=== PATIENT | male | born 1950 | race Two or more races ===

== ENCOUNTER 2024-10-04 11:01 | Emergency (ER) | payer MEDICAID, SELFPAY ==
[2024-10-04 11:25] VITALS: BP 151/66; PULSE 62; RESP 16; TEMP 36.9; O2SAT 96; BMI 26.7
--- NOTE | 2024-10-04 11:30 | EDRME_ITS ---
<Statement entered by Marilia Leung MD - 10/04/24 11:53> As co-signing physician, I was present and available for consult prn. I concur with the plan and care as documented by the midlevel provider. Rapid Medical Screening Exam RME Arrival date/time: 10/04/24 11:01 74-year-old male with no known medical history presents to the emergency room with a chief complaint of 7 out of 10 suprapubic abdominal tenderness, dysuria, and lower groin pain x 2 days. I have greeted and performed a focused initial assessment of this patient. A comprehensive ED assessment and evaluation of the patient, analysis of all test results, and completion of the medical decision making process will be conducted by additional ED providers. Chief Complaint: Urogenital-Male Time Seen by Provider: 10/04/24 11:25 Vital signs: Vital Signs Temperature 98.4 F 10/04/24 11:25 Pulse Rate 62 10/04/24 11:25 Respiratory Rate 16 10/04/24 11:25 Blood Pressure 151/66 H 10/04/24 11:25 Pulse Oximetry (%) 96 10/04/24 11:25 Oxygen Delivery Method Room Air 10/04/24 11:25 Vital signs reviewed by provider: Yes
--- NOTE | 2024-10-04 11:30 | XR_ITS ---
Examination: CT abdomen and pelvis without contrast. Coronal 3-D reconstructions. Sagittal 2-D reconstructions. Date and time of exam:October 04, 2024 1241 hours INDICATIONS: Lower abdominal pain radiating to the rectal region with difficulty urinating today CTDI: vol (mGy): 6.57 DLP: (mGycm): 405 Technique: Axial images of the abdomen have been obtained, 3 mm slice thickness Intravenous contrast material has not been administered. Low dose protocols were performed. One or more of the following dose reduction techniques were used; automated exposure control, adjustment of the mA and/or KV according to patient size, use of iterative reconstruction technique. Findings: No focal liver or splenic lesions No gallstones No pancreatic or adrenal mass 1 mm upper pole left renal calculus, no hydronephrosis or ureteral calculi Aorta normal size Normal appendix No bowel obstruction Transverse prostate dimension 4.5 cm Mild thickening urinary bladder wall Mild osteopenia No proctitis pattern IMPRESSION: 1 mm nonobstructing upper pole left renal calculus Normal appendix No bowel obstruction or diverticulitis Rectal wall does not exhibit definite thickening
[2024-10-04 11:59] LABS: Basophils # (Auto) 0.1 Thou/mm3 (0.0-0.2); Basophils % (Auto) 1 % (0-2.5); Eosinophils # (Auto) 0.3 Thou/mm3 (0.0-0.5); Eosinophils % (Auto) 5 % (0-10); Hematocrit 34.9 % (41.0-53.0); Hemoglobin 12.2 g/dL (13.5-16.0); Immature Granulocytes % (Auto) 0 % (0-0); Immature Granulocytes Auto 0.01 Thou/mm3 (0.00-0.00); Lymphocytes # (Auto) 2.2 Thou/mm3 (1.0-4.8); Lymphocytes % (Auto) 33 % (10-50); Mean Corpuscular Hemoglobin 31.7 pg (25.0-35.0); Mean Corpuscular Volume 91 fL (80-100); Monocytes # (Auto) 0.4 Thou/mm3 (0.0-0.8); Monocytes % (Auto) 6 % (0-12); Neutrophils # (Auto) 3.7 Thou/mm3 (1.8-7.7); Neutrophils % (Auto) 56 % (37-80); Nucleated Red Blood Cell % 0 /100 WBC (0); Platelet Count 306 Thou/mm3 (140-440); RDW Standard Deviation 42.1 fL (35.1-43.9); Red Blood Count 3.85 Miln/mm3 (4.50-5.90); White Blood Count 6.6 Thou/mm3 (3.8-10.6)
[2024-10-04] MEDS: KETOROLAC INJ 60 MG/2 ML VIAL 30 MG IM (12:20)
[2024-10-04] MEDS: TAMSULOSIN HCL 0.4 MG CAPSULE PO (12:20)
[2024-10-04 12:24] LABS: Prostate Specific Antigen 0.59 ng/mL (0-4.00)
[2024-10-04 12:32] LABS: Alanine Aminotransferase 8 U/L (10-49); Albumin, Serum 4.2 gm/dL (3.4-4.8); Albumin/Globulin Ratio 1.6 (1.2-2.2); Alkaline Phosphatase 97 U/L (46-116); Anion Gap 5 (7-16); Aspartate Amino Transferase 15 U/L (0-34); BUN/Creatinine Ratio 17 Ratio (12-20); Bilirubin,Total 0.4 mg/dL (0.3-1.2); Blood Urea Nitrogen 17 mg/dL (9-23); Calcium 8.9 mg/dL (8.3-10.6); Calcium (Corrected) 8.9 mg/dL (8.5-10.1); Carbon Dioxide 26.1 mMol/L (20.0-31.0); Chloride 110 mMol/L (98-107); Estimated Creatinine Clearance 59.7 mL/min (>60); Globulin 2.7 gm/dL (2.3-3.5); Glucose 132 mg/dL (74-106); Lipase 40 U/L (12-53); Osmolality,Calculated 284 (275-295); Sodium 141 mMol/L (136-145); Total Protein 6.9 gm/dL (5.7-8.2); eGFR > 60 See Note
[2024-10-04 12:43] LABS: Collection Type, Urine Clean Catch; Squamous Epithelial Cell,Urine 0 /hpf (0-5)
[2024-10-04 12:51] LABS: Bilirubin,Urine Negative (Negative); Blood,Urine Negative (Negative); Clarity,Urine Clear (Clear/Hazy); Color,Urine Yellow (Lt Yel-Yel); Glucose, Urine Negative (Negative); Ketones,Urine Negative (Negative); Leukocyte Esterase,Urine Negative (Negative); Nitrite,Urine Negative (Negative); PH,Urine 5.5 (5.0-7.0); Protein,Urine Trace (Neg - Trace); RBC,Urine 5 /hpf (0-3); Specific Gravity,Urine 1.029 (1.001-1.035); Urobilinogen,Urine Negative mg/dL (0.0-1.0); WBC,Urine 1 /hpf (0-5)
[2024-10-04 17:39] VITALS: BP 147/72; PULSE 60; RESP 18; TEMP 36.6; O2SAT 98
--- NOTE | 2024-10-04 17:46 | EDNOTE_ITS ---
<Statement entered by Marilia Leung MD - 10/05/24 07:27> As co-signing physician, I was present and available for consult prn. I concur with the plan and care as documented by the midlevel provider. ED Male Genitalurinary RME/[facility] General Chief complaint: Urogenital-Male Stated complaint: LOWER ABD PAIN RAD TO RECTUM, URINARY RETENTION Time Seen by Provider: 10/04/24 11:25 Arrival date/time: 10/04/24 11:01 RME / HPI RME / HPI Narrative: 74-year-old male with no known medical history presents to the emergency room with a chief complaint of 7 out of 10 suprapubic abdominal tenderness, dysuria, and lower groin pain x 2 days. Patient denies any hematuria. Denies any fever denies any vomiting denies any other complaints no medications taken prior to arrival. Related Data Previous Rx's ?Medication ?Instructions ?Recorded ibuprofen 600 mg tablet 600 mg PO TID PRN pain #30 t abs 10/04/24 tamsulosin 0.4 mg capsule (Flomax) 0.4 mg PO QDAY #20 caps 10/04/24 Allergies Allergy/AdvReac Type Severity Reaction Status Date / Time No Known Allergies Allergy Verified 10/04/24 11:06 Review of Systems Review of Systems Narrative Review of Systems: Review of system reviewed and within normal limits except mentioned in HPI ED Exam Narrative Physical exam: VITAL SIGNS: Reviewed. GENERAL APPEARANCE: Alert and interactive, follows commands, no acute distress, HEAD AND FACE: Non-traumatic. ENT: PERRL, pink conjunctivitis, eyelid no trauma, Mucous membrane moist. NECK: Supple, nontender, no nuchal rigidity. CHEST: No tenderness, no crepitus, no paradoxical movement, no retractions. LUNGS: Clear, well ventilated, symmetric, no rales, no wheezing, no ronchi, no stridor, good breath sounds bilaterally. HEART: Regular rate, regular rhythm, no murmur, no gallops. ABDOMEN: Soft, positive bowel sounds, nondistended, no guarding, nontender, no rebound, no masses, RECTAL: Deferred. GENITAL: Deferred. NEUROLOGICAL: Gross motor function intact sensory function intact, Appropriate for age. MUSCULOSKELETAL: low back nontender, full range of motion. EXTREMITIES: Nontender, full range of motion. SKIN: Color pink, dry, no rash, no lacerations, no abrasions, no contusions. LYMPHATICS: Deferred. Course Quality Measures none Orders Category Date Time Status CT abdomen pelvis wo con Stat Exams 10/04/24 11:30 Completed CBC Stat Lab 10/04/24 11:41 Completed CMP [Comprehensive Metabolic Panel] Stat Lab 10/04/24 11:41 Completed Lipase Stat Lab 10/04/24 11:41 Completed PSA [Prostate Specific Antigen] Stat Lab 10/04/24 11:41 Completed UA [Urinalysis] Stat Lab 10/04/24 12:25 Completed Urine Culture Stat Lab 10/04/24 12:25 Received Ketorolac Inj [Toradol Inj] Med 10/04/24 11:30 Discontinued 30 mg IM X1 ONE Tamsulosin HCl [Flomax] Med 10/04/24 11:30 Discontinued 0.4 mg PO X1 ONE Vital Signs Vital signs: Vital Signs Temperature 98.4 F 10/04/24 11:25 Pulse Rate 62 10/04/24 11:25 Respiratory Rate 16 10/04/24 11:25 Blood Pressure 151/66 H 10/04/24 11:25 Pulse Oximetry (%) 96 10/04/24 11:25 Oxygen Delivery Method Room Air 10/04/24 11:25 Urogenital - Male MDM Narrative MDM Narrative:: 74-year-old male with no known medical history presents to the emergency room with a chief complaint of 7 out of 10 suprapubic abdominal tenderness, dysuria, and lower groin pain x 2 days. Patient denies any hematuria. Denies any fever denies any vomiting denies any other complaints no medications taken prior to arrival. Laboratory workup all came back normal. No leukocytosis urinalysis no UTI. CT scan of the abdomen and pelvis showed 1 mm nonobstructing upper pole left renal calculus Normal appendix No bowel obstruction or diverticulitis Rectal wall does not exhibit definite thickening Results discussed with the patient. Currently patient is not having any pain. Patient appears nontoxic and hemodynamically stable. Patient discharged home and instructed to follow-up with primary care provider in 24 to 48 hours. Instructed to return to the emergency department immediately if worsening of symptoms Patient data External records reviewed:: None Clinical information provided by:: patient and family Social determinants that could affect healthcare access:: none Patient has the following chronic illnesses:: None How is presenting disease/condition affected by chronic disease/condition?: exacerbated by Evaluation data The following diagnostics were reviewed and interpreted by me:: lab results and radiology exam(s) Lab and/or radiology exams considered but not ordered:: None Interpretation Summary: See results in [facility] Medications / Prescriptions Medications or Prescriptions considered but not ordered:: None Medication administrations:: Medication Administration History Discontinued Medications Ketorolac Tromethamine (Ketorolac Inj 60 Mg/2 Ml Vial) 30 mg IM X1 ONE Stop: 10/04/24 11:31 Last Admin: 10/04/24 12:20 Dose: 30 mg Documented By: HEIDE Tamsulosin HCl (Tamsulosin Hcl 0.4 Mg Capsule) 0.4 mg PO X1 ONE Stop: 10/04/24 11:31 Last Admin: 10/04/24 12:20 Dose: 0.4 mg Documented By: HEIDE Flomax and Toradol Consultations Consultation(s) initiated? (list below): No Diagnosis Urogenital Male Differential Diagnosis: urinary tract infection, urethritis and other (Renal colic, kidney stone) Most likely diagnosis given after review of the tests above:: Renal colic, kidney stone Admission Indicated Admission indicated?: not indicated Admission Request Was there a request for admission?: No Disposition Plan Disposition Plan: Discharge Discharge Attestation Discharge Attestation: The patient and all family members were given an opportunity to ask questions and understood the discharge instructions. Discharge instructions specifically effects, indications for sooner follow up or return to the emergency department, and the expected course of current diagnosis. Patient condition: Stable Discharge Plan Plan Patient Disposition: HOME (Self Care) Disposition Comment: stable Prescriptions/Referrals Prescriptions/Med Rec: New ibuprofen 600 mg tablet 600 mg PO TID PRN (Reason: pain) Qty: 30 0RF tamsulosin [Flomax] 0.4 mg capsule 0.4 mg PO QDAY Qty: 20 0RF Referrals: No Primary/Family,Physician [Primary Care Provider] - In 1 week Problem List Clinical Impression: Renal colic, Calculus, renal Patient/Caregiver Discharge Instructions Discharge Activity: activity as tolerated Education Materials: ED Kidney Stone w/ Colic Additional Instructions: Thank you for the opportunity for serving you today. You are stable for discharged . You are advised to: Follow-up with your PCP in 1 to 2 days Return to ED for worsening of symptoms Increase oral fluids Take medication as prescribed Print Language: Argentine Stand Alone Forms: [employer] Info., Patient Portal Info Letter PA/HEALTH PROGRAM SPECIALIST Supervising Physician PA/HEALTH PROGRAM SPECIALIST Supervising Physician: MD Oswaldo
== END 2024-10-04 17:51 | disposition home or self-care (01) ==
PROVIDERS: Nurse Practitioner Family; Emergency Provider Emergency Medicine
DX: N20.0 Calculus of kidney (principal)
CPT/HCPCS: 36415; 74176; 80053; 81001; 83690; 84153; 85025; 87086; 96372; 99284; J1885; A9270

== ENCOUNTER 2024-11-16 15:57 | Emergency (ER) | payer MEDICAID, SELFPAY ==
--- NOTE | 2024-11-16 16:24 | PD.EDMALE ---
ED Male Genitalurinary RME/HPI General Chief complaint: Abdominal Pain Stated complaint: RASH PENIS Time Seen by Provider: 11/16/24 16:23 Arrival date/time: 11/16/24 15:57 74-year-old male presents to the emergency department today for complaints of recurrent rash to the penis. Patient was no fever nausea vomiting no chance of STD Limitations: no limitations Related Data Previous Rx's ?Medication ?Instructions ?Recorded ibuprofen 600 mg tablet 600 mg PO TID PRN pain #30 tabs 10/04/24 tamsulosin 0.4 mg capsule (Flomax) 0.4 mg PO QDAY #20 caps 10/04/24 clotrimazole 1 % topical cream 1 applic topical BID 2 weeks #30 11/16/24 grams fluconazole 150 mg tablet 150 mg PO Q3D 2 doses #2 tabs 11/16/24 Allergies Allergy/AdvReac Type Severity Reaction Status Date / Time No Known Allergies Allergy Verified 11/16/24 16:03 Review of Systems Review of Systems Systems Reviewed: All systems reviewed, normal except as documented Constitutional Constitutional: Reports system reviewed and no additional complaints, except as documented, Denies fever(s) and Denies headache(s) Eyes Eyes: Reports system reviewed and no additional complaints, except as documented and Denies blurry vision ENT Ears, Nose, Mouth, and Throat: Reports system reviewed and no additional complaints, except as documented, Denies headache(s), Denies nasal congestion and Denies nasal discharge Cardiovascular Cardiovascular: Reports system reviewed and no additional complaints, except as documented, Denies chest pain and Denies dyspnea Respiratory Respiratory: Reports system reviewed and no additional complaints, except as documented, Denies chest congestion, Denies cough and Denies dyspnea Gastrointestinal Gastrointestinal: Reports system reviewed and no additional complaints, except as documented and Denies abdominal pain Genitourinary Genitourinary: Reports system reviewed and no additional complaints, except as documented and Reports other (Skin irritation penis) Integumentary/Breasts Skin/Breast: Reports system reviewed and no additional complaints, except as documented and Denies rash Neurologic Neurologic: Reports system reviewed and no additional complaints, except as documented, Reports as per HPI and Denies headache(s) Past Medical History Social History SMOKING STATUS: Never smoker ED Exam General Limitations: Present no limitations General appearance: Present alert and in no apparent distress Head Head exam: Present atraumatic, normocephalic and normal inspection Eye Eye exam: Present normal appearance, PERRL and EOMI ENT ENT exam: Present normal exam, normal oropharynx and mucous membranes moist Neck Neck exam: Present normal inspection, full ROM and trachea midline Chest Chest inspection: Present normal inspection and symmetric chest wall rise Respiratory Respiratory exam: Present normal lung sounds bilaterally Cardiovascular Cardiovascular exam: Present regular rate, normal rhythm and normal heart sounds Abdominal Exam Abdominal exam: Present soft and normal bowel sounds; Absent distention, tenderness, guarding, rebound or rigidity exam: Present normal testicular lie and other (Penile rash no chancre); Absent testicular tenderness, urethral discharge, scrotal swelling or circumcised Extremities Exam Extremities exam: Present normal inspection and full ROM Back Exam Back exam: Present normal inspection and full ROM Neurological Exam Neurological exam: Present alert, oriented X3 and CN II-XII intact Psychiatric Psychiatric exam: Present normal affect and normal mood Skin Skin exam: Present warm, dry, intact and normal color Course Quality Measures none Vital Signs Vital signs: O2 saturation 98% room air within the limits Urogenital - Male MDM Narrative MDM Narrative:: 74-year-old male presents to the emergency department today for complaints of recurrent rash to the penis. Patient was no fever nausea vomiting no chance of STD On exam symptoms appear to be candidal rash patient be treated accordingly Patient reports no dysuria no fever no abdominal pain no vomiting Patient discharged home in no distress to follow-up with primary care doctor in the next 24 to 48 hours and for any worsening symptoms to return to the ER immediately Patient data External records reviewed:: [facility] previous records Clinical information provided by:: patient Social determinants that could affect healthcare access:: none Patient has the following chronic illnesses:: See history How is presenting disease/condition affected by chronic disease/condition?: uneffected by Evaluation data The following diagnostics were reviewed and interpreted by me:: other (specify) (N/A) Lab and/or radiology exams considered but not ordered:: Consider not ordered Interpretation Summary: N/A Medications / Prescriptions Medications or Prescriptions considered but not ordered:: Given Medication administrations:: Given Consultations Consultation(s) initiated? (list below): No Diagnosis Urogenital Male Differential Diagnosis: urinary tract infection, urethritis, prostatitis and other (Candidiasis, herpes, syphilis) Most likely diagnosis given after review of the tests above:: Candidiasis Admission Indicated Admission indicated?: not indicated Admission Request Was there a request for admission?: No Disposition Plan Disposition Plan: Discharge Discharge Attestation Discharge Attestation: The patient and all family members were given an opportunity to ask questions and understood the discharge instructions. Discharge instructions specifically effects, indications for sooner follow up or return to the emergency department, and the expected course of current diagnosis. Patient condition: Stable Discharge Plan Plan Patient Disposition: HOME (Self Care) Disposition Comment: stable Prescriptions/Referrals Prescriptions/Med Rec: New fluconazole 150 mg tablet 150 mg PO Q3D Qty: 2 0RF clotrimazole 1 % cream 1 applic topical BID 14 Days Qty: 30 0RF No Action ibuprofen 600 mg tablet 600 mg PO TID PRN (Reason: pain) Qty: 30 0RF tamsulosin [Flomax] 0.4 mg capsule 0.4 mg PO QDAY Qty: 20 0RF Problem List Clinical Impression: Infection of penis, Fungal dermatitis Patient/Caregiver Discharge Instructions Education Materials: ED Fungal Skin Infection (Tinea) Additional Instructions: Please follow up with your primary care doctor in the next 24-48hrs for any worsening symptoms return here immediately Print Language: Yakut Stand Alone Forms: [employer] Info., Patient Portal Info Letter PA/MENTAL HEALTH ASSISTANT Supervising Physician PA/MENTAL HEALTH ASSISTANT Supervising Physician: dr london
== END 2024-11-16 16:47 | disposition home or self-care (01) ==
LOC: SERX 16:33
PROVIDERS: Emergency Provider Emergency Medicine
DX: N48.29 Other inflammatory disorders of penis (principal); B36.9 Superficial mycosis, unspecified
CPT/HCPCS: 99281